=== PATIENT | male | born 1985 | race African-American/Black ===

== ENCOUNTER 2016-03-14 12:44 | Emergency (ER) | payer SELFPAY ==
--- NOTE | 2016-03-14 12:56 | ER Document Report ---
ED Medical Screen (RME) - General Stated Complaint: TOOTH PAIN Mode of Arrival: Ambulatory Information source: Patient Notes: Patient presents emergency department with complaints of dental pain that started last night. I have greeted and performed a rapid initial assessment of this patient. A comprehensive ED assessment and evaluation of the patient, analysis of test results and completion of the medical decision making process will be conducted by additional ED providers. TRAVEL OUTSIDE OF THE [place] IN LAST 30 DAYS: No - Related Data Allergies/Adverse Reactions: etodolac [From Lodine] Allergy (Verified 11/14/15 15:37) tramadol Allergy (Verified 11/14/15 15:37) Past Medical History Skin Medical History: Reports Hx Cellulitis Past Surgical History: Reports: Hx Oral Surgery - Dental Extraction - Immunizations Immunizations up to date: No Hx Diphtheria, Pertussis, Tetanus Vaccination: Yes Physical Exam - Vital signs Vitals: Temp Pulse Resp BP Pulse Ox 98.3 F 77 14 148/93 H 100 03/14/16 12:47 03/14/16 12:47 03/14/16 12:47 03/14/16 12:47 03/14/16 12:47 Course - Vital Signs Vital signs: Temp Pulse Resp BP Pulse Ox 98.3 F 77 14 148/93 H 100 03/14/16 12:47 03/14/16 12:47 03/14/16 12:47 03/14/16 12:47 03/14/16 12:47
--- NOTE | 2016-03-14 14:15 | ER Document Report ---
HPI - HPI Patient complains to provider of: dental pain Onset: Yesterday Onset/Duration: Gradual Pain Level: 3 Context: 30-year-old male complaining of dental decay and pain in right and left upper second molars. Some of the tooth fell out yesterday the pain is increased today. He has been to the emergency room many times over the past several years for dental pain. Associated Symptoms: None Exacerbated by: Other - Chewing and eating Relieved by: Denies Similar symptoms previously: Yes Recently seen / treated by doctor: No - ROS ROS below otherwise negative: Yes Systems Reviewed and Negative: Yes All other systems reviewed and negative - REPRODUCTIVE Reproductive: DENIES: : - DERM Skin Color: Normal Past Medical History - General Information source: Patient - Social History Smoking Status: Never Smoker Chew tobacco use (# tins/day): No Frequency of alcohol use: None Drug Abuse: None Occupation: needs a work note Lives with: Spouse/Significant other Family History: CAD, DM, Hyperlipidemia, Hypertension Patient has suicidal ideation: No Patient has homicidal ideation: No Renal/ Medical History: Denies: Hx Peritoneal Dialysis Skin Medical History: Reports Hx Cellulitis Past Surgical History: Reports: Hx Oral Surgery - Dental Extraction - Immunizations Immunizations up to date: No Hx Diphtheria, Pertussis, Tetanus Vaccination: Yes Vertical Provider Document - CONSTITUTIONAL Agree With Documented VS: Yes Exam Limitations: No Limitations - INFECTION CONTROL TRAVEL OUTSIDE OF THE [place] IN LAST 30 DAYS: No - HEENT HEENT: Normocephalic Notes: Second molar upper left and right with partial tooth loss and decay. No abscess. - NECK Neck: Supple. negative: Lymphadenopathy-Left, Lymphadenopathy-Right - RESPIRATORY O2 Sat by Pulse Oximetry: 100 - MUSCULOSKELETAL/EXTREMETIES Musculoskeletal/Extremeties: MAEW, FROM - NEURO Level of Consciousness: Awake, Alert - DERM Integumentary: Warm, Dry, No Rash Course - Vital Signs Vital signs: Temp Pulse Resp BP Pulse Ox 98.3 F 77 14 148/93 H 100 03/14/16 12:47 03/14/16 12:47 03/14/16 12:47 03/14/16 12:47 03/14/16 12:47 Discharge - Discharge Clinical Impression: dental pain and decay Condition: Good Disposition: HOME, SELF-CARE Instructions: Penicillin V K (OM), Toothache ([facility]), Dental Infection or Abscess ([facility]), Dentist, Acetaminophen Additional Instructions: see the dentist antibacterial dental mouthwash three times per day to er if worse Prescriptions: Naproxen Sodium [Naproxen Sodium Cr] 375 mg PO BIDP PRN #20 tbmp.24hr PRN Reason: Penicillin V Potassium [Penicillin Vk 500 mg Tablet] 500 mg PO QID #40 tablet Forms: Return to Work
[2016-03-14] MEDS ORDERED: NAPROXEN 375 MG TABLET PO ONE (14:17)
[2016-03-14] MEDS ORDERED: PENICILLIN V POTASSIUM 500 MG TABLET PO ONE (14:17)
[2016-03-14] MEDS ORDERED: ACETAMINOPHEN 325 MG TABLET PO ONE (14:17)
[2016-03-14 14:58] VITALS: BP 152/94
== END 2016-03-14 14:53 | disposition home or self-care (01) ==
LOC: ER 12:44
DX: K02.9 Dental caries, unspecified (principal); K08.89 Other specified disorders of teeth and supporting structures
CPT/HCPCS: 99282; J3490

== ENCOUNTER 2016-04-14 21:07 | Emergency (ER) | payer SELFPAY ==
--- NOTE | 2016-04-14 21:21 | ER Document Report ---
ED Medical Screen (RME) - General Stated Complaint: ABSCESS Time seen by provider: 21:17 Mode of Arrival: Ambulatory Notes: 50-year-old male presents to ED for abscess to the back of his head that is very painful preventing him from sleeping. States he has had abscesses before on the scalp. Denies ever having MRSA before. I have greeted and performed a rapid initial assessment of this patient. A comprehensive ED assessment and evaluation of the patient, analysis of test results and completion of medical decision making process will be conducted by an additional ED providers. TRAVEL OUTSIDE OF THE [place] IN LAST 30 DAYS: No - Related Data Allergies/Adverse Reactions: etodolac [From Lodine] Allergy (Verified 03/14/16 13:01) tramadol Allergy (Verified 03/14/16 13:01) Past Medical History Renal/ Medical History: Denies: Hx Peritoneal Dialysis Skin Medical History: Reports Hx Cellulitis Past Surgical History: Reports: Hx Oral Surgery - Dental Extraction - Immunizations Immunizations up to date: No Hx Diphtheria, Pertussis, Tetanus Vaccination: Yes
[2016-04-14] MEDS ORDERED: IBUPROFEN 800 MG TABLET PO ONE (21:22)
[2016-04-14] MEDS ORDERED: ACETAMINOPHEN 325 MG TABLET PO ONE (21:24)
[2016-04-14] MEDS ORDERED: LIDOCAINE 1%/EPINEPHRINE INJ 20 ML VIAL INJ ONE (23:44)
--- NOTE | 2016-04-14 23:46 | ER Document Report ---
ED Skin Rash/Insect Bite/Abscs - General Chief Complaint: Abscess Stated Complaint: ABSCESS Time seen by provider: 23:45 Mode of Arrival: Ambulatory Notes: Patient is a 30-year-old male that comes emergency department for chief complaint of a boil on his right posterior scalp. Patient states it has been worsening for over a week. He states that he has had this before, he has dreadlocks, he states that he had a previous was lanced and drained. He denies any daily medications or medical problems. TRAVEL OUTSIDE OF THE [place] IN LAST 30 DAYS: No - Related Data Allergies/Adverse Reactions: etodolac [From [employer]] Allergy (Verified 03/14/16 13:01) tramadol Allergy (Verified 03/14/16 13:01) Past Medical History - General Information source: Patient - Social History Smoking Status: Current Every Day Smoker Frequency of alcohol use: Social Lives with: Spouse/Significant other Family History: CAD, DM, Hyperlipidemia, Hypertension Patient has suicidal ideation: No Patient has homicidal ideation: No - Medical History Medical History: Negative Renal/ Medical History: Denies: Hx Peritoneal Dialysis Skin Medical History: Reports Hx Cellulitis Past Surgical History: Reports: Hx Oral Surgery - Dental Extraction - Immunizations Immunizations up to date: No Hx Diphtheria, Pertussis, Tetanus Vaccination: Yes Review of Systems - Review of Systems Constitutional: No symptoms reported EENT: No symptoms reported Cardiovascular: No symptoms reported Respiratory: No symptoms reported Gastrointestinal: No symptoms reported Genitourinary: No symptoms reported Male Genitourinary: No symptoms reported Musculoskeletal: No symptoms reported Skin: See HPI Hematologic/Lymphatic: No symptoms reported Neurological/Psychological: No symptoms reported Physical Exam - Vital signs Vitals: Temp Pulse Resp BP Pulse Ox 98.1 F 85 20 150/98 H 100 04/14/16 21:17 04/14/16 21:17 04/14/16 21:17 04/14/16 21:17 04/14/16 21:17 Interpretation: Normal - General General appearance: Appears well, Alert In distress: None - HEENT Head: Normocephalic, Atraumatic Eyes: Normal Conjunctiva: Normal Extraocular movements intact: Yes Eyelashes: Normal Pupils: PERRL Nasal: Normal Mouth/Lips: Normal Mucous membranes: Normal Pharynx: Normal Neck: Normal - Respiratory Respiratory status: No respiratory distress Chest status: Nontender Breath sounds: Normal Chest palpation: Normal - Cardiovascular Rhythm: Regular Heart sounds: Normal auscultation Murmur: No - Abdominal Inspection: Normal Distension: No distension Bowel sounds: Normal Tenderness: Nontender Organomegaly: No organomegaly - Back Back: Normal, Nontender - Extremities General upper extremity: Normal inspection, Nontender, Normal color, Normal ROM , Normal temperature General lower extremity: Normal inspection, Nontender, Normal color, Normal ROM , Normal temperature, Normal weight bearing. No: Atul's sign - Neurological Neuro grossly intact: Yes Cognition: Normal Orientation: AAOx4 [place] Coma Scale Eye Opening: Spontaneous [place] Coma Scale Verbal: Oriented [place] Coma Scale Motor: Obeys Commands [place] Coma Scale Total: 15 Speech: Normal Motor strength normal: LUE, RUE, LLE, RLE Sensory: Normal - Psychological Associated symptoms: Normal affect, Normal mood - Skin Skin Temperature: Warm Skin Moisture: Dry Skin Color: Normal Skin irregularity: Abscess - There is an indurated and fluctuant area over the right mid occipital scalp, slight surrounding erythema noted, no streaking away from the area, no other abnormalities noted Course - Re-evaluation Re-evalutation: Single abscess drained, very slight cellulitis around the area, patient will be placed on Bactrim, packing was placed, patient states he has had packed abscesses before which he is used to taking care of and removing the packing himself. Discussed abscess drainage wound care and return precautions, patient states understanding and agreement. - Vital Signs Vital signs: Temp Pulse Resp BP Pulse Ox 98.1 F 68 16 118/84 98 04/15/16 00:30 04/15/16 00:30 04/15/16 00:30 04/15/16 00:30 04/15/16 00:30 Procedures - Incision and Drainage right mid occipital scalp Type: Single Anesthetic type: 1% Lidocaine mL's of anesthetic: 4 I&D procedure: Iodoform packing placed, Other - Surgical cleanser Incision Method: Incision made by scalpel Amount/type of drainage: 2 mL purulent matter Notes: Incision made with scalpel after cleansing with surgical cleanser and anesthesia with lidocaine 1%, expressed about 2 miles of purulent pus, minimal to no bleeding, explored with needle pile driver operator, irrigated, packed with iodoform Discharge - Discharge Clinical Impression: Scalp abscess Condition: Stable Disposition: HOME, SELF-CARE Additional Instructions: The abscess on the scalp has been drained, take the packing out in 2 days, clean with soap and water, take the Bactrim antibiotic as directed. Return to the emergency department for any concerning or worsening symptoms including spreading redness, swelling of the area, fever, etc. Prescriptions: Sulfamethoxazole/Trimethoprim [Bactrim Ds Tablet] 1 each PO BID #10 tablet Forms: Return to Work
[2016-04-15] MEDS ORDERED: LIDOCAINE 1% INJ-PF (10 MG/ML) 30 ML SDV ONE (00:12)
[2016-04-15] MEDS ORDERED: HYDROCODONE/ACETAMINOPHEN 5-325 MG 6 TAB/DSPK PO PRN (00:22)
[2016-04-15 00:47] VITALS: BP 118/84
== END 2016-04-15 00:35 | disposition home or self-care (01) ==
LOC: ER 21:07
PROC: 0H90XZZ Drainage of Scalp Skin, External Approach (ICD-10-PCS; principal; 2016-04-14)
DX: L02.811 Cutaneous abscess of head [any part, except face] (principal); F17.200 Nicotine dependence, unspecified, uncomplicated; Z88.6 Allergy status to analgesic agent
CPT/HCPCS: 99283

== ENCOUNTER 2018-05-14 07:26 | Emergency (ER) | payer OTHER ==
[2018-05-14] MEDS ORDERED: BUPIVACAINE HCL 0.5 % INJ/PF 30 ML SDV INJ ONE (08:26)
[2018-05-14] MEDS ORDERED: DIPH/PERTUSS(ACELL)/TETANUS VAC/PF 0.5 ML SYR (>=10YO) IM ONE (08:26)
[2018-05-14] MEDS ORDERED: HYDROCODONE/ACETAMINOPHEN 5-325 MG TABLET PO ONE (08:27)
--- NOTE | 2018-05-14 09:13 | RADIOLOGY REPORT (SQ) ---
EXAM DESCRIPTION: FINGER RIGHT COMPLETED DATE/TIME: 05/14/2018 8:55 am REASON FOR STUDY: r 3rd finger injury, lac COMPARISON: None. NUMBER OF VIEWS: Three views. TECHNIQUE: AP, lateral, and oblique images acquired of the right third finger. LIMITATIONS: None. FINDINGS: MINERALIZATION: Normal. BONES: No acute fracture or dislocation. No worrisome bone lesions. SOFT TISSUES: No soft tissue swelling. No foreign body. There is a laceration along the 3rd finger tip with overlying gauze OTHER: No other significant finding. IMPRESSION: No acute fracture or retained radiopaque foreign body. Soft tissue laceration right 3rd finger tip COMMENT: SITE OF TRAUMA/COMPLAINT MARKED/STAMP COMPLETED: YES. TECHNICAL DOCUMENTATION: JOB ID: [id number] [employer]- All Rights Reserved Reading location - IP/workstation name: [email or web address]
--- NOTE | 2018-05-14 09:48 | ER Document Report ---
HPI - HPI Patient complains to provider of: Finger injury Time Seen by Provider: 05/14/18 08:18 Onset: Just prior to arrival Onset/Duration: Sudden Quality of pain: Achy Pain Level: 3 Context: Patient was attempting to open a trailer and cut his hand on a sharp piece of metal. Patient is right-hand dominant. Patient with laceration to palmar surface of right third finger. Associated Symptoms: Other - Right third finger laceration Exacerbated by: Movement Relieved by: Denies Similar symptoms previously: No Recently seen / treated by doctor: No - ROS ROS below otherwise negative: Yes Systems Reviewed and Negative: Yes All other systems reviewed and negative - CONSTITUTIONAL Constitutional: DENIES: Fever - NEURO Neurology: DENIES: Weakness - GASTROINTESTINAL Gastrointestinal: DENIES: Nausea - REPRODUCTIVE Reproductive: DENIES: : - MUSCULOSKELETAL Musculoskeletal: REPORTS: Extremity pain - DERM Skin Color: Normal Skin Problems: Laceration Past Medical History - General Information source: Patient - Social History Smoking Status: Never Smoker Frequency of alcohol use: None Drug Abuse: None Occupation: [email or web address] Lives with: Family Family History: CAD, DM, Hyperlipidemia, Hypertension Patient has suicidal ideation: No Patient has homicidal ideation: No - Medical History Medical History: Negative Renal/ Medical History: Denies: Hx Peritoneal Dialysis Skin Medical History: Reports Hx Cellulitis Past Surgical History: Reports: Hx Oral Surgery - Dental Extraction - Immunizations Immunizations up to date: No Hx Diphtheria, Pertussis, Tetanus Vaccination: Yes Vertical Provider Document - CONSTITUTIONAL Agree With Documented VS: Yes Exam Limitations: No Limitations General Appearance: WD/WN Notes: Patient very anxious about his finger laceration - INFECTION CONTROL TRAVEL OUTSIDE OF THE [place] IN LAST 30 DAYS: No - HEENT HEENT: Atraumatic, Normocephalic - NECK Neck: Normal Inspection - RESPIRATORY Respiratory: Breath Sounds Normal, No Respiratory Distress - CARDIOVASCULAR Cardiovascular: Regular Rate, Regular Rhythm Pulses: Normal: Radial - MUSCULOSKELETAL/EXTREMETIES Musculoskeletal/Extremeties: MAEW, FROM, Tender - Tenderness to right third finger. Notes: Patient able to flex and extend right third finger without difficulty. No obvious tendon laceration - NEURO Level of Consciousness: Awake, Alert, Appropriate Motor/Sensory: No Motor Deficit, No Sensory Deficit - DERM Integumentary: Warm, Dry, Laceration - 6 cm laceration to the palmar surface of right third finger Course - Vital Signs Vital signs: Temp Pulse Resp BP Pulse Ox 98.1 F 118 H 18 171/103 H 98 05/14/18 07:35 05/14/18 07:35 05/14/18 07:35 05/14/18 07:35 05/14/18 07:35 - Diagnostic Test Radiology reviewed: Image reviewed, Reports reviewed Procedures - Immobilization Right Finger 3rd digit Pre-Proc Neuro Vasc Exam: Normal Immobilizer type: Finger splint (Static) Performed by: PCT Post-Proc Neuro Vasc Exam: Normal Alignment checked and good: Yes - Laceration/Wound Repair Right Finger 3rd digit Wound length (cm): 6 Wound's Depth, Shape: Linear, Irregular, Flap Laceration pre-procedure: Shur-Clens applied Anesthetic type: 0.5% Bupivacaine Wound explored: Clean, No foreign body removed Wound Repaired With: Sutures Suture Size/Type: 5:0, Nylon Number of Sutures: 16 Post-procedure wound care: Splint applied Post-procedure NV exam normal: Yes Complications: No Hands front picture: 1 - lac 2 - lac Discharge - Discharge Clinical Impression: Finger laceration Qualifiers: Encounter type: initial encounter Finger: middle finger Damage to nail status: without damage Foreign body presence: without foreign body Laterality: right Qualified Code(s): S61.212A - Laceration without foreign body of right middle finger without damage to nail, initial encounter Condition: Stable Disposition: HOME, SELF-CARE Instructions: Laceration Care ([facility]), Prophylactic Antibiotic ([facility]), Temporary Splint ([facility]), Tetanus Immunization Given ([facility]) Additional Instructions: Return immediately for any new or worsening symptoms, redness, swelling, fever, or any concerning symptoms Followup with orthopedic hand specialist for any numbness tingling or loss of range of motion, call for an appointment. Wear splint for the next 4 days and then remove. Suture removal in 12 days. Prescriptions: Cephalexin Monohydrate [Keflex 500 mg Capsule] 500 mg PO Q6H 5 Days capsule Hydrocodone/Acetaminophen [[place] 5-325 mg Tablet] 1 tab PO Q6 PRN #8 tablet PRN Reason: Forms: Restricted Release, Return to Work Referrals: KYLIE SIERRA DO [ACTIVE STAFF] - Follow up as needed
[2018-05-14 10:26] VITALS: BP 172/107
== END 2018-05-14 10:26 | disposition home or self-care (01) ==
LOC: ER 07:26
PROC: 0HQFXZZ Repair Right Hand Skin, External Approach (ICD-10-PCS; principal; 2018-05-14)
DX: S61.212A Laceration without foreign body of right middle finger without damage to nail, initial encounter (principal); M79.644 Pain in right finger(s); W26.0XXA Contact with knife, initial encounter
CPT/HCPCS: 99283; 90471; 73140; 90715; 12002; J3490

== ENCOUNTER 2018-05-27 14:02 | Emergency (ER) | payer OTHER ==
[2018-05-27 14:12] VITALS: BP 153/71
--- NOTE | 2018-05-27 14:45 | ER Document Report ---
ED Suture/Wound Recheck - General Chief Complaint: Suture Removal Stated Complaint: SUTURE REMOVAL Time Seen by Provider: 05/27/18 14:26 Primary Care Provider: KYLIE SIERRA DO [ACTIVE STAFF] - Follow up as needed Mode of Arrival: Ambulatory Information source: Patient Notes: 33-year-old male was presented to ED for suture removal from the right second finger there were inserted 13 days ago after he accidentally sliced his finger open. 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 He states he will wear a glove after his sutures are removed. TRAVEL OUTSIDE OF THE [place] IN LAST 30 DAYS: No - HPI Previous ED treatment: Laceration repair Antibiotics given previously: Prescription Quality of pain: Achy - At times Pain Level: Denies Context: Injury Symptoms since procedure: No complaints Exacerbated by: Movement Relieved by: Denies - Related Data Allergies/Adverse Reactions: etodolac [From Lodine] Allergy (Verified 05/27/18 14:04) tramadol Allergy (Verified 05/27/18 14:04) Past Medical History - General Information source: Patient - Social History Smoking Status: Current Every Day Smoker Cigarette use (# per day): Yes - 1-2 per day Chew tobacco use (# tins/day): No Smoking Education Provided: Yes - 4 minutes Frequency of alcohol use: None Drug Abuse: None Occupation: [employer] Lives with: Family Family History: CAD, DM, Hyperlipidemia, Hypertension Patient has suicidal ideation: No Patient has homicidal ideation: No - Past Medical History Cardiac Medical History: Reports: None Pulmonary Medical History: Reports: None EENT Medical History: Reports: None Neurological Medical History: Reports: None Endocrine Medical History: Reports: None Renal/ Medical History: Reports: None Malignancy Medical History: Reports None GI Medical History: Reports: None Musculoskeletal Medical History: Reports Hx Musculoskeletal Deformity, Reports Hx Musculoskeletal Trauma Skin Medical History: Reports Hx Cellulitis Psychiatric Medical History: Reports: None Traumatic Medical History: Reports: None Infectious Medical History: Reports: None Past Surgical History: Reports: Hx Oral Surgery - Dental Extraction - Immunizations Immunizations up to date: No Hx Diphtheria, Pertussis, Tetanus Vaccination: Yes Review of Systems - Review of Systems Constitutional: No symptoms reported EENT: No symptoms reported Cardiovascular: No symptoms reported Respiratory: No symptoms reported Gastrointestinal: No symptoms reported Genitourinary: No symptoms reported Male Genitourinary: No symptoms reported Musculoskeletal: No symptoms reported Skin: Other - Sutures removed from his second finger on the right hand Hematologic/Lymphatic: No symptoms reported Neurological/Psychological: No symptoms reported -: Yes All other systems reviewed and negative Physical Exam - Vital signs Vitals: Temp Pulse Resp BP Pulse Ox 98 F 79 18 153/71 H 98 05/27/18 14:11 05/27/18 14:11 05/27/18 14:11 05/27/18 14:11 05/27/18 14:11 Interpretation: Normal - General General appearance: Appears well, Alert - HEENT Head: Normocephalic, Atraumatic Eyes: Normal Pupils: PERRL - Respiratory Respiratory status: No respiratory distress Chest status: Nontender Breath sounds: Normal Chest palpation: Normal - Cardiovascular Rhythm: Regular Heart sounds: Normal auscultation Murmur: No - Abdominal Inspection: Normal Distension: No distension Bowel sounds: Normal Tenderness: Nontender Organomegaly: No organomegaly - Back Back: Normal, Nontender - Extremities General upper extremity: Normal inspection, Nontender, Normal color, Normal ROM, Normal temperature General lower extremity: Normal inspection, Nontender, Normal color, Normal ROM, Normal temperature, Normal weight bearing. No: Atul's sign Hand: Laceration - 05/14 healing well 13 sutures removed - Neurological Neuro grossly intact: Yes Cognition: Normal Orientation: AAOx4 [place] Coma Scale Eye Opening: Spontaneous [place] Coma Scale Verbal: Oriented [place] Coma Scale Motor: Obeys Commands [place] Coma Scale Total: 15 Speech: Normal Motor strength normal: LUE, RUE, LLE, RLE Sensory: Normal - Psychological Associated symptoms: Normal affect, Normal mood - Skin Skin Temperature: Warm Skin Moisture: Dry Skin Color: Normal Course - Vital Signs Vital signs: Temp Pulse Resp BP Pulse Ox 98 F 79 18 153/71 H 98 05/27/18 14:11 05/27/18 14:11 05/27/18 14:11 05/27/18 14:11 05/27/18 14:11 Discharge - Discharge Clinical Impression: Visit for suture removal Condition: Stable Disposition: HOME, SELF-CARE Instructions: Suture Removal Additional Instructions: SOAP CLEANSING: Gently wash the wound daily using a mild soap (like Ivory, Phisoderm, Neutrogena). Use warm water, rubbing gently until all debris, ooze, and crusting have been washed from the wound. Allow to dry briefly (about 10 minutes) after cleaning. Repeat this cleansing at least three times a day for the first two days and then once or twice a day. ANTIBIOTIC OINTMENT PROTECTION: Your wounds are such that dressing them is not practical or optional. After cleansing, you should apply a thin coating of antibiotic ointment (Bacitracin, not Neosporin) to the wounds at least three times daily. This lessens infection risk, and may decrease the amount of scarring. Use a q-tip or dull butter knife, not your finger, to apply this ointment. Any debris or ooze which builds up in the ointment should be gently rubbed off with a sterile gauze pad. Harder crusting may need to be gently scrubbed off with a clean wash cloth with soap and warm water, perhaps applying a warm, wet wash cloth to the wound for ten minutes first. Development of redness, severe itching, or blistering may mean allergy to the ointment. See the doctor. FOLLOW-UP CARE: If you have been referred to a physician for follow-up care, call the physician s office for an appointment as you were instructed or within the next two days. If you experience worsening or a significant change in your symptoms, notify the physician immediately or return to the Emergency Department at any time for re- evaluation. Forms: Elevated Blood Pressure, Smoking Cessation Education, Return to Work Referrals: KYLIE SIERRA, [ACTIVE STAFF] - Follow up as needed
== END 2018-05-27 15:01 | disposition home or self-care (01) ==
LOC: ER 14:02
DX: S61.210D Laceration without foreign body of right index finger without damage to nail, subsequent encounter (principal); X58.XXXD Exposure to other specified factors, subsequent encounter; F17.210 Nicotine dependence, cigarettes, uncomplicated; Z71.6 Tobacco abuse counseling; Z88.8 Allergy status to other drugs, medicaments and biological substances; Z88.5 Allergy status to narcotic agent

== ENCOUNTER 2020-02-21 11:08 | Emergency (ER) | payer SELFPAY ==
[2020-02-21 11:18] VITALS: BP 153/92
[2020-02-21] MEDS ORDERED: AMOXICILLIN TRIHYDRATE 500 MG CAPSULE PO ONE (11:59)
--- NOTE | 2020-02-21 12:02 | ER Document Report ---
HPI - HPI Time Seen by Provider: 02/21/20 11:59 Pain Level: 5 Context: Patient is a 34-year-old male who comes to the emergency department for chief complaint of right lower jaw pain. Patient has a known broken tooth in the area, he states the area has started some painful over the past 2 days. Patient denies facial swelling, fever, sore throat, neck pain, or any other complaints. He denies any other medical history. - CONSTITUTIONAL Constitutional: DENIES: Fever, Chills - REPRODUCTIVE Reproductive: DENIES: : Past Medical History - Social History Smoking Status: Current Every Day Smoker Chew tobacco use (# tins/day): No Frequency of alcohol use: None Drug Abuse: None Family History: CAD, DM, Hyperlipidemia, Hypertension Renal/ Medical History: Denies: Hx Peritoneal Dialysis Musculoskeletal Medical History: Reports Hx Musculoskeletal Deformity, Reports Hx Musculoskeletal Trauma Skin Medical History: Reports Hx Cellulitis Past Surgical History: Reports: Hx Oral Surgery - Dental Extraction - Immunizations Immunizations up to date: No Hx Diphtheria, Pertussis, Tetanus Vaccination: Yes Vertical Provider Document - CONSTITUTIONAL General Appearance: WD/WN, No Apparent Distress - INFECTION CONTROL TRAVEL OUTSIDE OF THE [place] IN LAST 30 DAYS: No - HEENT HEENT: Atraumatic, Normocephalic, PERRLA. negative: Conjuctival Injection, Pharyngeal Exudate, Pharyngeal Tenderness, Pharyngeal Erythema, Tympanic Membrane Red, Tympanic Membrane Bulging Mouth Diagram: 1 - 2 dental caries with adjacent erythema of the gumline but no abscess is noted. No concerning findings noted otherwise - NECK Neck: Normal Inspection - RESPIRATORY Respiratory: Breath Sounds Normal, No Respiratory Distress - CARDIOVASCULAR Cardiovascular: Regular Rate, Regular Rhythm - GI/ABDOMEN Gastrointestinal: Abdomen Soft, Abdomen Non-Tender. negative: Abdomen Tender - BACK Back: Normal Inspection - MUSCULOSKELETAL/EXTREMETIES Musculoskeletal/Extremeties: MAEW, FROM, Non-Tender - NEURO Level of Consciousness: Awake, Alert, Appropriate Motor/Sensory: No Motor Deficit, No Sensory Deficit - DERM Integumentary: Warm, Dry, No Rash Course - Re-evaluation Re-evalutation: Evaluation consistent with early dental infection with no secondary abscess or concerning findings noted otherwise. Starting on antibiotics, discussed dental follow-up and return precautions. Patient states understanding and agreement. - Vital Signs Vital signs: Temp Pulse Resp BP Pulse Ox 98.7 F 92 16 153/92 H 100 02/21/20 11:17 02/21/20 11:17 02/21/20 11:17 02/21/20 11:17 02/21/20 11:17 - Laboratory Results Critical Laboratory Results Reviewed: No Critical Results - Radiology Results Critical Radiology Results Reviewed: No Critical Results Discharge - Discharge Clinical Impression: Pain, dental, Dental infection Condition: Stable Disposition: HOME, SELF-CARE Additional Instructions: Your evaluation is consistent with a dental infection. Take the antibiotics as prescribed to completion. You can take 600 mg of ibuprofen and 1000 mg of Tylenol together every 6 hours for the pain. Follow-up with the dental referral for repair/extraction or this will continue to happen. Return if you worsen including swelling of the face, severe worsening pain, fever, or any other concerning symptoms. [facility] [address], [address] Prescriptions: Amoxicillin Trihydrate [Amoxil 500 mg Capsule] 500 mg PO BID 10 Days #20 capsule Forms: Return to Work, Elevated Blood Pressure
== END 2020-02-21 12:15 | disposition home or self-care (01) ==
LOC: ER 11:08
DX: K04.7 Periapical abscess without sinus (principal); K02.9 Dental caries, unspecified; F17.200 Nicotine dependence, unspecified, uncomplicated
CPT/HCPCS: 99283